=== PATIENT | male | born 1955 | race Caucasian/White ===

== ENCOUNTER 2021-02-14 01:10 | Emergency (ER) | payer OTHER ==
[2021-02-14] MEDS ORDERED: Aspirin 81 MG Tab.Chew PO ONE (01:28)
--- NOTE | 2021-02-14 01:28 | EDM.PDOC ---
ED HPI GENERAL MEDICAL PROBLEM - General Stated Complaint: CHEST PAIN, IREGULAR HEART BEAT PER PT Time Seen by Provider: 02/14/21 01:19 Source of Information: Reports: Patient History Limitations: Reports: No Limitations - History of Present Illness INITIAL COMMENTS - FREE TEXT/NARRATIVE: This 65 yo male patient reports to the ED due to chest pain that woke him up from sleep. The patient reports his pain was initially in the upper stomach or lower chest. Upon waking up and feeling chest pain, the patient woke up his who noticed an irregular heartbeat and brought the patient to the ED. The gonsalo ent reports his chest pain was gone by the time he got into the ED. The patient has not taken any thing for his symptoms. The patient does have a history of a heart murmur, but has never seen a melt house centrifugal operator for any cardiac issues. Onset: Today Duration: Minutes:, Resolved Prior to Arrival (chest pain), Other (irregular heartrate) Location: Reports: Chest Quality: Reports: Ache Severity: Moderate Improves with: Reports: Other Worsens with: Reports: None Context: Reports: Other Associated Symptoms: Reports: Chest Pain - Related Data Allergies Allergy/AdvReac Type Severity Reaction Status Date / Time bee venom protein (honey bee) Allergy Anaphylactic Verified 02/14/21 01:26 Shock codeine Allergy Nausea and Verified 02/14/21 01:20 Vomiting Home Meds: Home Meds Multivitamin 1 each PO DAILY 02/14/21 [History] Social & Family History - Tobacco Use Tobacco Use Status *Q: Never Tobacco User Second Hand Smoke Exposure: No - Recreational Drug Use Recreational Drug Use: No ED ROS GENERAL - Review of Systems Review Of Systems: Comprehensive ROS is negative, except as noted in HPI. ED EXAM, GENERAL - Physical Exam Exam: See Below Exam Limited By: No Limitations General Appearance: Alert, WD/WN, Mild Distress, Thin Eye Exam: Bilateral Eye: EOMI, Normal Inspection, PERRL Ears: Normal External Exam, Normal Canal, Hearing Grossly Normal, Normal TMs Nose: Normal Inspection, Normal Mucosa, No Blood Throat/Mouth: Normal Inspection, Normal Lips, Normal Teeth, Normal Gums, Normal Oropharynx, Normal Voice, No Airway Compromise Head: Atraumatic, Normocephalic Neck: Normal Inspection, Supple, Non-Tender, Full Range of Motion Respiratory/Chest: No Respiratory Distress, Lungs Clear, Normal Breath Sounds, No Accessory Muscle Use, Chest Non-Tender Cardiovascular: Normal Peripheral Pulses, No Edema, No Gallop, No JVD, No Rub, Other (Missed beats) GI/Abdominal: Normal Bowel Sounds, Soft, Non-Tender, No Organomegaly, No Distention, No Abnormal Bruit, No Mass (Male) Exam: Deferred Rectal (Males) Exam: Deferred Back Exam: Normal Inspection, Full Range of Motion, NT Extremities: Normal Inspection, Normal Range of Motion, Non-Tender, Normal Capillary Refill, No Pedal Edema Neurological: Alert, Oriented, CN II-XII Intact, Normal Cognition, Normal Gait, Normal Reflexes, No Motor/Sensory Deficits Psychiatric: Normal Affect, Normal Mood Skin Exam: Warm, Dry, Intact, Normal Color, No Rash Lymphatic: No Adenopathy #1 Interpretation EKG Date: 02/14/21 Time: 01:17 Rhythm: Other (Second degree type 1) [place]: Normal P-Wave: Present QRS: Normal ST-T: Normal QT: Normal Comparison: NA - No Prior EKG #2 Interpretation EKG Date: 02/14/21 Time: 05:28 Rhythm: Other (2nd degree Type 1 heartblock) [place]: Normal P-Wave: Present QRS: Normal ST-T: Normal QT: Normal Comparison: No Change Course - Vital Signs Last Recorded V/S: Last Vital Signs Temp 36.1 C 02/14/21 05:42 Pulse 34 L 02/14/21 05:42 Resp 14 02/14/21 05:42 BP 126/60 02/14/21 05:42 Pulse Ox 99 02/14/21 05:42 - Orders/Labs/Meds Orders: Active Orders 24 hr Category Date Time Status EKG Documentation Completion [RC] ASDIRECTED Care 02/14/21 05:30 Active EKG Documentation Completion [RC] STAT Care 02/14/21 01:12 Active Labs: Laboratory Tests 02/14/21 02/14/21 02/14/21 Range/Units 01:24 01:24 05:35 WBC 5.2 (5.0-10.0) 10^3/uL RBC 5.26 (4.6-6.2) 10^6/uL Hgb 14.5 (14.0-18.0) g/dL Hct 43.8 (40.0-54.0) % MCV 83.3 (80-100) fL MCH 27.6 (27.0-34.0) pg MCHC 33.1 (33.0-35.0) g/dL Plt Count 221 (150-450) 10^3/uL Neut % (Auto) 51.1 (42.2-75.2) % Lymph % (Auto) 28.8 (20.5-50.1) % [place] % (Auto) 12.4 H (2-8) % Eos % (Auto) 6.9 H (1.0-3.0) % Baso % (Auto) 0.8 (0.0-1.0) % Sodium 141 (136-145) mmol/L Potassium 3.8 (3.5-5.1) mmol/L Chloride 104 (98-107) mmol/L Carbon Dioxide 31 (21-32) mmol/L Anion Gap 9.8 (7-13) mEq/L BUN 14 (7-18) mg/dL Creatinine 0.90 (0.70-1.30) mg/dL Est Cr Clr Drug Dosing 94.10 mL/min Estimated GFR (MDRD) > 60 BUN/Creatinine Ratio 15.6 (No establ ref range) Glucose 86 (70-99) mg/dL Calcium 8.8 (8.5-10.1) mg/dL Total Bilirubin 0.4 (0.2-1.0) mg/dL AST 18 (15-37) U/L ALT 27 (16-63) U/L Alkaline Phosphatase 41 L (46-116) U/L Troponin I < 0.017 < 0.017 (0.000-0.056) ng/mL Total Protein 6.6 (6.4-8.2) g/dL Albumin 3.4 (3.4-5.0) g/dL Globulin 3.2 Albumin/Globulin Ratio 1.1 Meds: Medications Discontinued Medications Generic Name Dose Route Start Last Admin Trade Name Freq PRN Reason Stop Dose Admin Aspirin 324 mg 02/14/21 01:28 02/14/21 01:33 Aspirin 81 Mg Tab.Chew PO 02/14/21 01:29 324 mg ONETIME ONE Administration - Radiology Interpretation Free Text/Narrative:: [facility] Final Radiology Report Call: [phone] assistance Online chat: [email or web address] Name: [email or web address] PONCE Age: 65Years M Date: 02/14/2021 SSN: -- : [id number] Study: CR CHEST 1V FRONTAL Requesting Physician: Arthur Newell Images: 1 Addl Studies: Provided Clinical History: chest pain Contrast: Contrast Medium: Contrast Amount: Contrast Method: CONFIDENTIALITY STATEMENT This report is intended only for use by the referring physician, and only in accordance with law. If you received this in error, call [phone]. Page 1 of 1 PROCEDURE INFORMATION: Exam: XR Chest Exam date and time: 02/14/2021 1:39 AM Age: 65 years old Clinical indication: Chest pain TECHNIQUE: Imaging protocol: XR of the chest. Views: 1 view. COMPARISON: No relevant prior studies available. FINDINGS: Lungs: There is mild increase in interstitial markings within the lungs. This is nonspecific. No pneumonia or pulmonary edema is present. Pleural spaces: Unremarkable. No pleural effusion. No pneumothorax. Heart/Mediastinum: Unremarkable. No cardiomegaly. Bones/joints: Unremarkable. IMPRESSION: Mild nonspecific chronic interstitial change. No pneumonia or pulmonary edema. Thank you for allowing us to participate in the care of your patient. Dictated and Authenticated by: Vinnie Silva MD 02/14/2021 1:58 AM Central Time ([place] & [place]) - Re-Assessments/Exams Free Text/Narrative Re-Assessment/Exam: 02/14/21 06:23 A consult call was placed to Dr. Gallegos (Educational Psychology Teacher) regarding new onset 2nd degree type [address] Gallegos advised to have the patient follow-up with his primary care facility for continued evaluation. Departure - Departure Time of Disposition: 06:25 Disposition: Home, Self-Care 01 Condition: Fair Clinical Impression: Nonspecific chest pain, Second degree type I atrioventricular block Instructions: Nonspecific Chest Pain, Adult, [id number] Forms: ED Department Discharge Care Plan Goals: The patient was advised of the examination, lab, EKG, x-ray, repeat lab and repeat EKG results during the visit. During the patient's visit, a consult call was placed to Dr. Gallegos (Educational Psychology Teacher with [employer] in [place]). Dr. Gallegos advised to have the patient follow-up with his primary care provider. If the patient has any additional symptoms or concerns, the patient should either return to the emergency department or visit his primary care facility. Sepsis Event Note (ED) - Evaluation Sepsis Screening Result: No Definite Risk - Focused Exam Vital Signs: Vital Signs Temp Pulse Resp BP BP Pulse Ox 02/14/21 05:42 36.1 C 34 L 14 126/60 99 02/14/21 02:46 36.5 C 40 L 14 114/62 100 02/14/21 01:12 36.2 C 39 L 16 122/79 99 - My Orders Last 24 Hours: My Active Orders 02/14/21 01:12 EKG Documentation Completion [RC] STAT 02/14/21 05:30 EKG Documentation Completion [RC] ASDIRECTED - Assessment/Plan Last 24 Hours: My Active Orders 02/14/21 01:12 EKG Documentation Completion [RC] STAT 02/14/21 05:30 EKG Documentation Completion [RC] ASDIRECTED
[2021-02-14 01:59] LABS: ANION GAP 9.8 mEq/L (7-13); CHLORIDE,CL 104 mmol/L (98-107); SODIUM,NA 141 mmol/L (136-145)
--- NOTE | 2021-02-14 01:59 | CR ---
PROCEDURE INFORMATION: Exam: XR Chest Exam date and time: 02/14/2021 1:39 AM Age: 65 years old Clinical indication: Chest pain TECHNIQUE: Imaging protocol: XR of the chest. Views: 1 view. COMPARISON: No relevant prior studies available. FINDINGS: Lungs: There is mild increase in interstitial markings within the lungs. This is nonspecific. No pneumonia or pulmonary edema is present. Pleural spaces: Unremarkable. No pleural effusion. No pneumothorax. Heart/Mediastinum: Unremarkable. No cardiomegaly. Bones/joints: Unremarkable. IMPRESSION: Mild nonspecific chronic interstitial change. No pneumonia or pulmonary edema.
== END 2021-02-14 06:40 | disposition home or self-care (01) ==
LOC: DL.ED 01:10
DX: I44.1 Atrioventricular block, second degree (principal); Z91.030 Bee allergy status; Z88.5 Allergy status to narcotic agent
CPT/HCPCS: 36415; 71045; 80053; 84484; 85025; 93005; 93010; 99284; 99285; A9270